=== PATIENT | female | born 1985 | race Caucasian/White ===

== ENCOUNTER → 2017-04-08 | Day surgery (SDC) | payer BC ==
[~2017-04-08] MED LIST: BUPIVACAINE HCL PF 0.25% 30 ML VIAL ONE; LACTATED RINGER'S 1000 ML INJ 1,000 ML IV ONE; LACTATED RINGER'S 1000 ML INJ 1,000 ML ONE; MIDAZOLAM HCL 2 MG/2 ML VIAL ONE; ONDANSETRON HCL 4 MG/2 ML VIAL IV PUSH ONE; PROPOFOL 200 MG/20 ML AMP IV ONE; ceFAZolin 2 GM PREMIX 50 ML ONE
--- NOTE | 2017-04-12 18:42 | TN ---
cc: OLIVIA MEIER MERNA DATE OF SURGERY 04/08/2017 DATE OF 1985 HISTORY The patient is a 31-year-old female who presented to my clinic complaining of bilateral bunion and tailor's bunion pain. She had pain with shoe pressure and ambulation. 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 She continued to have pain with motion and pressure to the medial and lateral foot in both of those areas. Discussed risks, benefits and potential complications of surgery with her and she agreed to move forward with bunionectomy left foot and tailor's bunionectomy left foot. Risks, benefits and potential complications were described in great detail and she agreed and consented to move forward with surgery. She was seen in preop holding by myself, nursing staff and Anesthesia where the correct patient, side and site were all confirmed to be correct in the left foot. She was then taken to the surgical suite, placed in supine position where the left foot was prepped and draped in normal sterile fashion. After timeouts were performed as per facility protocol the left foot was addressed to the medial aspect where a dorsomedial incision was made approximately 6 cm crossing over the first metatarsophalangeal joint taking care to avoid neurovascular structures. Dissection was taken down carefully to the capsule where a linear capsulotomy was performed to the dorsomedial aspect of the first metatarsal phalangeal joint. The distal and medial aspect of the first metatarsal head was exposed and visualized followed by a distal Chevron long dorsal arm osteotomy performed with a saw blade to the left first metatarsal, followed by reduction of the bunion deformity with lateral translation of the capital fragment approximately 3 mm. Following this, screw fixation with a 3.0 mm cannulated Arthrex screw as well as a 2.0 mm Trim-It pin were both utilized for two points of fixation of the osteotomy. Following this the medial eminence and dorsal eminence were resected, followed by a lateral release performed. Following this the area was copiously irrigated followed by closure of the capsule with 3-0 Vicryl, followed by closure of the skin with 3-0 nylon suture. Following this, attention was directed to the lateral aspect of the foot where a linear incision approximately 4 cm was made over the dorsolateral aspect of the fifth metatarsophalangeal joint. Following this, careful dissection was taken down to the capsule area to avoid neurovascular structures followed by linear dorsal capsulotomy in order to gain access to lateral aspect of the fifth metatarsal head. Following this, a distal long oblique osteotomy angled from dorsal distal to proximal plantar was made and translated medially approximately 2 mm followed by fixation with 2.3 mm cannulated Arthrex screw as well as a 1.5 mm Trim-It pin. C-arm was utilized for placement of all hardware and fixation as well as reduction of deformity prior to end of procedures. Following this, the area was copiously irrigated. Lateral eminence was resected from the fifth metatarsal head followed by closure of the deep tissue with #4-0 Vicryl suture followed by closure of the skin with 3-0 nylon suture. Local anesthetic consisting of 20 mL 0.25% Marcaine plain was injected into both medial lateral aspects of the foot. The patient tolerated procedure and anesthesia well and will be weightbearing as tolerated to the left foot in short Cam boot and follow up in clinic in one week. She was taken to PACU with vital signs stable and vascular status intact to the left lower extremity. SHORT OPERATIVE NOTE SURGEON Olivia Meier DIRECTOR PRODUCT DEVELOPMENT Staff PREOPERATIVE DIAGNOSES 1. Painful bunion left foot. 2. Painful tailor's bunion left foot. POSTOPERATIVE DIAGNOSES 1. Painful bunion left foot. 2. Painful tailor's bunion left foot. PROCEDURE 1. Bunionectomy with distal metatarsal osteotomy left foot. 2. Tailor's bunionectomy with distal metatarsal osteotomy left foot fifth metatarsal. PATHOLOGY None. PROPHYLAXIS 2 grams Ancef IV preop. ANESTHESIA General endotracheal anesthesia plus 20 mL 0.25% Marcaine plain and local block ESTIMATED BLOOD LOSS Minimal HEMOSTASIS Left ankle tourniquet at 250 mmHg times 92 minutes. CONDITION Stable to PACU. DISPOSITION Weightbearing as tolerated left foot and short Cam boot. Return to clinic in one week for dressing change. Olivia COLE/KK /5:42 PM /6:18 PM
== END | disposition home or self-care (01) ==
LOC: ESDC 06:30
PROVIDERS: ATTEND Podiatrist Foot & Ankle Surgery
DX: M21.622 Bunionette of left foot (principal); M21.621 Bunionette of right foot; M21.612 Bunion of left foot; M21.611 Bunion of right foot
CPT/HCPCS: 01480; 28110; 28296; 73630; 76000; C1713; J0690; J2250; J2405; J3010; J7120